=== PATIENT | female | born 1940 | race Caucasian/White ===

== ENCOUNTER → 2017-05-21 | Outpatient (CLI) | payer MEDICARE, BC ==
[~2017-05-21] MED LIST: AMARYL PO; AMITRIPTYLINE H25 MG PO; AMITRYPTYLINE PO; AMLODIPINE BESYL5 MG PO; ASPIRIN81 M1 PO; ASPIRIN81 MG PO; BENADRYL25 MG PO; BENICAR HCT 20-1 TA1 PO; BENICAR20 MG PO; DEMADEX PO; FAMOTIDINE PO; FISH OIL 1,001000 MG PO; FISH OIL 500 MG1 CAP PO; LOPRESSOR PO; PREDNISONE PO; PREMARIN0.3 MG PO; TOPROL XL 50 MG50 MG PO; VICTOZA0.6 MG/0.1 SQ; VITAMIN D; VITAMIN D35000 UNI1 PO; VYTORIN 10-40 M1 TAB PO
--- NOTE | ~2017-05-21 | CT57 ---
[facility]. [facility] A Service of [facility] & [facility] / [facility] RADIOLOGY TEXT RESULTS PATIENT: ARELIS ACUÑA LOCATION: [facility] : 36 UNIT #: [id number] AGE: [address]: Boogie Tamayo MD SEX: F ORDER DR: [id number] [address] [address] [id number] MR#: [id number] Acc #: [id number] NAME: ARELIS ACUÑA : 1940 SEX: F STUDY DATE/TIME: 05/21/2017 10:15 UNIT: [facility] ROOM: STUDY DESCRIPTION: CT Chest Wo Cont Attending Physician: Boogie Tamayo M.D. Referring Physician: Boogie Tamayo M.D. Ordering Physician: Boogie Tamayo M.D. Primary Care Physician: Sixto Cuevas M.D. MEDICAL IMAGING REPORT This report is preliminary unless electronic signature is present. EXAM Chest CT without contrast. HISTORY Emphysema chronically. Bilateral lung nodules noted in the past with a new nodule seen on chest CT December 2016. Evaluate for growth over time. TECHNIQUE Axial images were obtained without contrast and evaluated at lung and mediastinal windows. This CT exam was performed with one or more of the following radiation dose reduction techniques: automatic exposure control, adjustment of mA and/or kV according to patient size, and iterative reconstruction. FINDINGS Chest images at mediastinal window show no enlarged mediastinal or hilar lymph nodes. There is no evidence of pleural or pericardial fluid. There is diffuse fatty infiltration of the liver noted and a small low-density liver lesion is seen in segment 6, unchanged from the previous examination, probably representing a small hemangioma. Lung window imaging shows increased left apical volume loss since the previous examination with a broad band of linear consolidation seen extending from above the left hilum up to the apex. This has worsened since the previous examination. I do not see any evidence of a discrete enlarging mass. Chronic atelectasis in the right upper lobe is noted once again and not significantly changed. There is a 5 mm nodule seen in the lingula near the hilum on the previous scan and it is again noted and unchanged. No new lesions are identified. IMPRESSION 1. Progressive consolidation and volume loss at the left apex since the STS. [facility] A Service of [facility] & [facility] / [facility] RADIOLOGY TEXT RESULTS PATIENT: ARELIS ACUÑA LOCATION: [facility] : 36 UNIT #: [id number] AGE: [address]: Boogie Tamayo MD SEX: F ORDER DR: previous examination. There is a masslike density in this area that is unchanged. Low suspicion for malignancy in this area. 2. Fairly extensive chronic volume loss in the right upper lobe is stable. 3. There is a 5 mm nodule adjacent to the left hilum that is stable. I recommend continued followup of the left apical process. Consider repeat scan in 4-6 months. Dictated by... Riley Alvarez M.D. THIS IS AN ELECTRONICALLY VERIFIED REPORT Riley Alvarez M.D. at 05/22/2017 4:08 PM APRIL/steve TD: 05/22/2017 11:22 JOB #: [id number] MEDICAL IMAGING REPORT Page 1 of 1
== END | disposition home or self-care (01) ==
LOC: SCT 10:04
DX: C34.10 Malignant neoplasm of upper lobe, unspecified bronchus or lung (principal); J44.9 Chronic obstructive pulmonary disease, unspecified; J98.4 Other disorders of lung; R91.1 Solitary pulmonary nodule
CPT/HCPCS: 71250